=== PATIENT | female | born 1965 | race Caucasian/White ===

== ENCOUNTER → 2017-06-01 | Outpatient (CLI) | payer MEDICAID ==
[2017-06-01 12:48] LABS: Anisocytosis Moderate; Basophils % (A) 0 %; Eosinophils # (A) 0.1 k/uL (0-0.7); Eosinophils % (A) 1 %; HCT 39.5 % (34.0-46.0); HGB 12.1 gm/dL (11.4-16.0); Hypochromasia Moderate; Lymphocytes # (A) 0.9 k/uL (1.0-4.8); Lymphocytes % (A) 15 %; MCH 27.4 pg (25.0-35.0); MCHC 30.7 g/dL (31.0-37.0); MCV 89.3 fL (80.0-100.0); Mean Platelet Volume 9.1; Microcytosis Slight; Monocytes # (A) 0.3 k/uL (0-1.0); Monocytes % (A) 5 %; Neutrophils # (A) 4.5 k/uL (1.3-7.7); Neutrophils % (A) 76 %; Platelet Count 246 k/uL (150-450); RBC 4.42 m/uL (3.80-5.40); RDW 22.7 % (11.5-15.5); WBC 5.9 k/uL (3.8-10.6)
[2017-06-01 12:50] LABS: Anion Gap 9 mmol/L; Blood Urea Nitrogen 10 mg/dL (7-17); Carbon Dioxide 28 mmol/L (22-30); Chloride 104 mmol/L (98-107); Glucose 114 mg/dL (74-99); Potassium 4.1 mmol/L (3.5-5.1); Sodium 141 mmol/L (137-145)
== END | disposition home or self-care (01) ==
LOC: LABPAT 11:58
PROVIDERS: ATTEND Obstetrics & Gynecology
DX: Z01.812 Encounter for preprocedural laboratory examination (principal); D64.9 Anemia, unspecified; N92.0 Excessive and frequent menstruation with regular cycle; D25.9 Leiomyoma of uterus, unspecified
CPT/HCPCS: 36415; 80051; 82565; 82947; 84520; 85025; 87086

== ENCOUNTER 2017-06-08 05:53 | Observation (INO) | payer MEDICAID ==
[2017-06-01 10:30] VITALS: BMI 21.8
--- NOTE | 2017-06-03 14:11 | HP ---
HISTORY AND PHYSICAL This is a 51-year-old female who presented for opinion regarding very heavy long menses with golf ball size clots. Ablation has been scheduled to be performed by a different blocker polishing, but was canceled secondary to the finding of intramural fibroids. Menses continue; however, to be very heavy and the patient is requesting hysterectomy. She was hospitalized last month for severe anemia, hemoglobin 6, she was transfused and sent home. She receives bio identical hormone pellets every 10 weeks from another provider. Menses are quite long, lasting 7 to 10 days in duration, very heavy with the passage as noted of golf ball size clots. Patient uses msvl-bvd-zaavlum medications for cramping at the time of menses. Most recent Pap smear last year was said to be within normal limits. REVIEW OF SYSTEMS: Otherwise negative. PAST MEDICAL HISTORY: Significant for small fibroids. PAST SURGICAL HISTORY: D&C in 2013 for heavy bleeding, negative pathology. CURRENT MEDICATIONS: 1. Ferrous sulfate 325 mg daily. 2. Nature Thyroid 1.25 grains daily. 3. Progesterone 200 mg 2nd week after menses daily. 4. Vitamin C 500 mg once daily. 5. Vitamin D3 five thousand units once daily. 6. Wellbutrin SR 150 mg tablets twice daily. 7. Xanax 0.25 mg 1/2 to 1 pill two to three times monthly. ALLERGIES: None known. FAMILY HISTORY: Significant for esophageal cancer in the patient's brother who at age 53. REPRODUCTIVE HISTORY: Significant for 3 vaginal deliveries, all live-born children in good health. 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 She drinks coffee daily, has never been a smoker, admits to alcohol use on the weekends. She denies any illicit substance abuse. PHYSICAL EXAM: This is a pleasant young female, 5 foot 4 inches, 127 pounds, BMI 21.8, blood pressure 136/80, patient is afebrile. The general physical exam reveals negative HEENT, normal thyromegaly, no obvious cervical lymphadenopathy, good dentition. Breasts are bilaterally symmetric to inspection with no skin dimpling, nipple discharge, axillary adenopathy or discernible lesions or masses. Abdomen is soft and nontender, active bowel sounds, no hepatosplenomegaly, no evidence of herniorrhaphy. On external genitalia, the labia and perineal bodies are all within normal limits to inspection. No obvious cystocele or rectocele. Cervix is multiparous. Uterus is slightly tender to palpation, midline and mid-plane, 10 to 12 weeks size and slightly irregular in contour consistent with fibroid uterus. Adnexa are negative bilaterally, small and nontender. Rectal exam reveals no rectal masses, no hemorrhoids, good sphincter tone, FIT negative stool. No lymphadenopathy is noted. IMPRESSION: Fibroid uterus, continued menorrhagia with anemia. Patient requesting hysterectomy. PLAN: We have reviewed the risks, benefits, and alternatives of vaginal hysterectomy, possible total abdominal hysterectomy, possible bilateral salpingo-oophorectomy only if the ovaries appear abnormal to inspection. We reviewed the risks of bleeding, infection, perforation or damage to the bowel, bladder, ureters, blood vessels, or any abdominal or pelvic organs. The ACOG pamphlet had been given on this procedure to the patient and she has reviewed them. All questions are answered. We also reviewed risks of anesthesia to include aspiration, nerve damage, or even . Likely patient will consent to the spinal with Duramorph to aid in postoperative analgesia. MMODL / IJN: [id number] /
[~2017-06-08 05:53] MED LIST: DEXAMETHASONE SOD PHOSPHATE 10 MG/ML 1 ML VIAL IV ONE; HYDROmorphone 0.5 MG/0.5 ML SYRINGE IVP PRN; MORPHINE SULFATE 4 MG/ML SYRINGE IV PRN; ONDANSETRON 4 MG/2 ML VIAL IVP ONE; ONDANSETRON 4 MG/2 ML VIAL IVP PRN; ceFAZolin IN SWFI 2 GM/20 ML SYRINGE IVP ONE
[2017-06-08] MEDS: LACTATED RINGERS 1,000 ML IV SCH ×3 (06:35→11:04)
[2017-06-08] MEDS ORDERED: LIDOCAINE 1% 20 ML VIAL (10MG/ML) FOR IV START INTRADERMA ONE (06:36)
[2017-06-08] MEDS ORDERED: DEXAMETHASONE SOD PHOS (MDV) 100 MG/10 ML VIAL IV ONE (06:40)
[2017-06-08] MEDS ORDERED: VASOPRESSIN 20 UNIT/ML 1 ML VIAL SQ ONE ×2 (07:26→07:53)
[2017-06-08] MEDS ORDERED: PROPOFOL 10 MG/ML 20 ML VIAL IV ONE (07:30)
[2017-06-08] MEDS ORDERED: MIDAZOLAM 2 MG/2 ML VIAL ONE (07:30)
[2017-06-08] MEDS ORDERED: LIDOCAINE 1% INJ 10MG/ML (20 ML MDV) ONE (07:30)
[2017-06-08] MEDS ORDERED: SUCCINYLCHOLINE CHLORIDE 100 MG/5 ML SYR IV ONE (07:30)
[2017-06-08] MEDS ORDERED: KETOROLAC 30 MG/ML 1 ML VIAL ONE (07:30)
[2017-06-08] MEDS ORDERED: fentaNYL (PF) 50 MCG/ML 2 ML AMP ONE (07:30)
[2017-06-08] MEDS ORDERED: HYDROmorphone (PF) 1 MG/ML ONE (07:30)
[2017-06-08] MEDS ORDERED: BACITRACIN OINT 1 EACH PACKET TOPICAL ONE (08:06)
[2017-06-08] MEDS ORDERED: ZOLPIDEM 5 MG TAB PO PRN (09:30)
[2017-06-08] MEDS ORDERED: diphenhydrAMINE 50 MG/ML 1 ML VIAL IVP PRN (09:30)
[2017-06-08] MEDS ORDERED: ONDANSETRON 4 MG/2 ML VIAL IVP PRN (09:30)
[2017-06-08] MEDS ORDERED: SIMETHICONE 80 MG CHEWABLE PO PRN (09:30)
[2017-06-08] MEDS ORDERED: Acetaminophen-Codeine 300-30mg TAB PO PRN (09:30)
--- NOTE | 2017-06-08 09:30 | P.OP ---
Date of Procedure: 06/08/17 Preoperative Diagnosis: fibroid uterus, anemia Postoperative Diagnosis: pathology pending Procedure(s) Performed: vaginal hysterecomy Anesthesia: TRISTAN Surgeon: Mary Hoffman Quality Improvement Analyst #1: Tracie Cedeno Estimated Blood Loss (ml): 150 IV fluids (ml): 1,000 Urine output (ml): 400 Pathology: other (Cervix and uterus) Condition: stable Disposition: PACU Description of Procedure: Patient is brought to the operating suite where a general anesthetic is administered without difficulty. She's placed in the dorsal lithotomy position. The cervix, vagina, perineum and lower abdomen are all prepped and draped in usual sterile fashion. Antibiotics are given. Urine hCG is negative. The appropriate timeout was performed to assure proper patient and procedural identification. The bladder is drained for 400 mL of clear yellow urine. The weighted speculum was placed into the vagina. The anterior lip of the cervix is grasped with a double-tooth tenaculum. The cervix is injected with dilute Pitressin solution for total of 10 mL's. A twenty-nine palms blade scalpel is used to incise the peritoneum circumferentially with a V like positioning at 6: 00. A sponge rolled finger is used to sweep the mucosa from the underlying fascial plane. The peritoneum was entered at 6:00 and suture tied with 2-0 Vicryl, held with a hemostat. The large billed speculum was then placed. At all times the mucosa is swept well from the operative field to avoid bladder and/or ureteral injury. Uterosacral cardinal ligaments are identified, clamped cut and held laterally. Uterine vasculature is identified, clamped cut and suture ligated. 2 additional pedicles are taken superior to the vessels on both sides. The peritoneum is entered at 12:00 with Metzenbaum scissors. Uterus is then "walked out" posteriorly. The remaining pedicles are grasped firmly with Tawnya clamps, the specimen is removed. The pedicles are tied with a 0 Vicryl suture in a Tawnya fashion, flashed, and retied for excellent hemostasis. Ovaries are then visualized with a sponge stick, they are noted to be within the normal limits bilaterally and therefore left in situ per the patient's wishes. All vascular pedicles once again examined and noted to be clean and dry. The peritoneal stitch at 6:00 is brought around circumferentially to close the peritoneum in a pursestring fashion. The uterosacral cardinal ligament complex these are brought across to incorporate the opposite complex as well as vaginal mucosa to close the vaginal cuff. 3 additional tckazg-xw-bztvv sutures are used for final cuff closure. The vagina is packed with a 1 inch iodophor gauze. Dodd catheter is placed in the urine is noted to be clear. All sponge needle and enhancement counts are correct at the end of the procedure. Patient is brought back to the recovery room in very good condition with stable vital signs including 100% O2 saturation, pulse 60, blood pressure 107/57. Toradol is given prior to leaving the operative room.
[2017-06-08] MEDS ORDERED: HYDROmorphone PCA 5 MG/25 ML SYRINGE IV PRN (09:32)
[2017-06-08] MEDS ORDERED: NALOXONE 0.4 MG/ML 1 ML VIAL IV PRN (09:32)
[2017-06-08] MEDS ORDERED: HYDROmorphone 2 MG/ML 1 ML SYRINGE IVP ONE ×4 (09:45→10:11)
[2017-06-08] MEDS ORDERED: METOCLOPRAMIDE 5 MG/ML 2 ML VIAL IVP STA (15:31)
[2017-06-08] MEDS: KETOROLAC 30 MG/ML 1 ML VIAL IVP PRN ×2 (15:51→22:55)
[2017-06-08] MEDS ORDERED: METOCLOPRAMIDE 5 MG/ML 2 ML VIAL IVP SCH (18:00)
[2017-06-08] MEDS ORDERED: PROMETHAZINE INJ 6.25 MG in SODIUM CHLORIDE 0.9% 50 ML IVPB PRN (20:07)
[2017-06-08] MEDS ORDERED: LACTATED RINGERS 500 ML IV SCH (20:15)
[2017-06-08] MEDS: buPROPion SR 100 MG TABLET.ER PO SCH (20:20)
[2017-06-08] MEDS: SENNOSIDES-DOCUSATE SODIUM 1 EACH TAB PO SCH (20:20)
[2017-06-09] MEDS: KETOROLAC 30 MG/ML 1 ML VIAL IVP PRN (05:47)
[2017-06-09] MEDS: LACTATED RINGERS 1,000 ML IV SCH (06:09)
--- NOTE | 2017-06-09 07:33 | P.DS ---
Providers Date of admission: 06/08/17 21:34 Expected date of discharge: 06/09/17 Attending physician: Mary Hoffman Primary care physician: [facility] Course: This is a 51-year-old 3 para 3 who presented with a long-standing history of fibroid uterus, hypermenorrhea, and secondary anemia. After consultation she elected to proceed with vaginal hysterectomy. She had 3 previous vaginal deliveries, all unremarkable. Please see my dictated history and physical for details. Patient underwent a vaginal hysterectomy and did well intraoperatively. The ovaries were carefully inspected, noted to be normal, and therefore left in situ per her wishes. Vagina was packed with iodophor gauze. Dodd catheter placed, urine clear. Please see my dictated operative note for details. Postoperatively initially the patient had issues with nausea and vomiting. She was given Zofran, Reglan, and ultimately Phenergan. The emesis settle down and patient was able to sleep through the night. This morning she is feeling greatly improved. Vaginal packing has been removed, Dodd catheter is discontinued, she is voiding freely. There is no vaginal flow. Abdomen is soft , nontender, active bowel sounds. There is no CVA tenderness. Extremities are negative. Chest is clear in all oneill. Patient is therefore being discharged home later this morning in good condition. She will follow-up with me in the office in 2 weeks. I have reminded her no intercourse, tampons or douching. No heavy lifting. No driving for 2 weeks. Limited stair climbing and activity at home. She will use pvbv-wut-lqnzqoj Advil or Aleve as needed for pain, and will follow instructions as per the labels. She will resume her home medications. I have asked her to call me with any fevers shakes or chills, foul smelling or bloody vaginal drainage, with any pain not alleviated by sefc-nxi-vrzfbeq products, with any continued nausea or vomiting, or indeed with any concerns. She will follow-up in the office with me in 2 weeks, appointment scheduled. Patient Condition at Discharge: Good Plan - Discharge Summary Discharge Rx Participant: Yes New Discharge Prescriptions: No Action buPROPion [Wellbutrin] 200 mg PO BID Progesterone, Micronized [Progesterone] 200 mg PO HS Thyroid,Pork [Nature-Throid] 1 g PO QAM Discharge Medication List Progesterone, Micronized [Progesterone] 200 mg PO HS 06/01/17 [History] Thyroid,Pork [Nature-Throid] 1 g PO QAM 06/01/17 [History] buPROPion [Wellbutrin] 200 mg PO BID 06/01/17 [History] Follow up Appointment(s)/Referral(s): Mary Hoffman MD [STAFF PHYSICIAN] - 2 Weeks
[2017-06-09] MEDS: buPROPion SR 100 MG TABLET.ER PO SCH (07:39)
[2017-06-09] MEDS: SENNOSIDES-DOCUSATE SODIUM 1 EACH TAB PO SCH (07:40)
[2017-06-09] MEDS ORDERED: ACETAMINOPHEN TAB 325 MG TAB PO PRN (09:31)
[2017-06-09] MEDS ORDERED: IBUPROFEN 600 MG TAB PO STA (11:24)
[2017-06-09 11:35] VITALS: BP 118/57; PULSE 84; RESP 18; TEMP 98.7
== END 2017-06-09 11:50 | disposition home or self-care (01) ==
LOC: OR 05:53 → 4FBP 08:58 → OR 21:34
PROVIDERS: ADMIT Obstetrics & Gynecology; ATTEND Obstetrics & Gynecology
DX: D25.0 Submucous leiomyoma of uterus (principal); D25.1 Intramural leiomyoma of uterus; D50.0 Iron deficiency anemia secondary to blood loss (chronic); N80.0 Endometriosis of uterus; R11.2 Nausea with vomiting, unspecified; Z80.0 Family history of malignant neoplasm of digestive organs; Z79.899 Other long term (current) drug therapy
CPT/HCPCS: 81025; 86900; 86901; 86850; 88307; 36415; 58260; G0378 ×2; J2250; J1170 ×3; J2550; J2765; J2405; J2001; J3010; J1885 ×2; J1100; J0330; J2704; J0690

== ENCOUNTER → 2022-04-18 | Outpatient (CLI) | payer OTHER ==
--- NOTE | 2022-04-21 09:45 | MM ---
Reason for Exam: Screening (asymptomatic). Last mammogram was performed 1 year(s) and 3 month(s) ago. Patient History: Menarche at age 12. First Full-Term at age 25. Hysterectomy at age 48. Risk Values: She 5 year model risk: 1.4%. NCI Lifetime model risk: 7.8%. Prior Study Comparison: 08/24/2018 Screening Mammogram, [facility]. 01/09/2021 Bilateral Screening Mammogram, [facility]. Tissue Density: The breast tissue is heterogeneously dense. This may lower the sensitivity of mammography. Findings: Analyzed By CAD. There is no suspicious group of microcalcifications or new suspicious mass in either breast. Overall Assessment: Negative, BI-RAD 1 Management: Screening Mammogram of both breasts in 1 year. A clinical breast exam by your physician is recommended on an annual basis and results should be correlated with mammographic findings. [facility] will attempt to contact patient to return for supplemental views and ultrasound if indicated. Electronically signed and approved by: Tez Marquez DO
== END | disposition home or self-care (01) ==
LOC: RADMAMWWP 09:31
PROVIDERS: ATTEND Obstetrics & Gynecology
DX: Z12.31 Encounter for screening mammogram for malignant neoplasm of breast (principal)
CPT/HCPCS: 77067

== ENCOUNTER → 2024-08-23 | Outpatient (CLI) | payer OTHER ==
--- NOTE | 2024-08-23 10:56 | MM ---
Reason for Exam: Screening (asymptomatic). Last mammogram was performed 1 year(s) and 1 month(s) ago. Patient History: Menarche at age 12. First Full-Term at age 25. Hysterectomy at age 48. Risk Values: She 5 year model risk: 1.5%. NCI Lifetime model risk: 7.2%. Prior Study Comparison: 01/09/2021 Bilateral Screening Mammogram, [facility]. 04/18/2022 Bilateral MG screening mammo w CAD, [facility]. 07/14/2023 Bilateral MG screening mammo w CAD, [facility]. Tissue Density: The breasts are extremely dense, which lowers the sensitivity of mammography. Findings: Analyzed By CAD. There is no suspicious group of microcalcifications or new suspicious mass in either breast. Overall Assessment: Negative, BI-RAD 1 Management: Screening Mammogram of both breasts in 1 year. Some advise annual bilateral breast ultrasound surveillance in patients with background extremely dense tissue. Patient should continue monthly self-breast exams. A clinical breast exam by your physician is recommended on an annual basis. This exam should not preclude additional follow-up of suspicious palpable abnormalities. Note on She scores and lifetime risk: 1. A She score greater than 3% is considered moderate risk. If this is the case, consider specialist referral to assess eligibility for a risk reducing agent. 2. If overall lifetime risk for the development of breast cancer is 20% or higher, the patient may qualify for future screening with alternating mammogram and breast MRI. [facility], , 08/23/2024 10:53 AM. Electronically signed and approved by: Bob Watkins M.D.
== END | disposition home or self-care (01) ==
LOC: RADMAMWWP 09:27
PROVIDERS: ATTEND Obstetrics & Gynecology
DX: Z12.31 Encounter for screening mammogram for malignant neoplasm of breast (principal); R92.343 Mammographic extreme density, bilateral breasts
CPT/HCPCS: 77067